=== PATIENT | male | born 1930 | race Caucasian/White ===

== ENCOUNTER → 2016-11-29 | Outpatient (CLI) | payer BC ==
[~2016-11-29] MED LIST: ALLO100T PO; CLC100X PO; CLON0.5T3 PO; DIPH-437 PO; DIVA125T18 PO; DOXY1TAB6 PO; FURO20TA PO; INDO50CA97 PO; LATA0.009 OPR; LEVO100T PO; LPR25 PO; LSN20 PO; MRLP17X PO; MULT-808 PO; POTA-335 PO; RIVA1.5T PO; SENN-63 PO; TYLOTC500 PO
[2016-11-29 09:44] LABS: BLOOD UREA NITROGEN 23 mg/dl (7-18); BUN/CREATININE RATIO 20.6 (10-20); CALCIUM 8.6 mg/dl (8.5-10.1); CARBON DIOXIDE 29 mmol/L (21-32); CHLORIDE 110 mmol/L (98-107); GLUCOSE 246 mg/dl (70-99); POTASSIUM 4.3 mmol/L (3.5-5.1); SODIUM 142 mmol/L (136-145)
--- NOTE | 2017-01-02 06:05 | CODING QUERY NO DIAGNOSIS ---
TREATMENT RENDERED WITHOUT A DIAGNOSIS To promote full compliance with coding requirements relating to patient care, physician participation is requested in all cases of airborne electronics analyst uncertainty. Please assist us with providing a diagnosis/symptom for the test(s) below: A diagnosis/symptom was not documented on your Order. A valid diagnosis/symptom is required to bill all insurances. Please remember that we are unable to code a diagnosis of rule out, probable, possible, questionable, or suspected. Tests that require a diagnosis: *PARTIAL RENAL PROFILE DIAGNOSIS: Provider Signature: Date: Thank you Darya Day [facility] Information Management Once completed, please kindly fax back to [phone] For questions please call [phone]
== END | disposition home or self-care (01) ==
LOC: C.LABOUTLO 08:56
PROVIDERS: ATTEND Family Medicine
DX: Z01.89 Encounter for other specified special examinations (principal)

== ENCOUNTER → 2017-02-07 | Outpatient (CLI) | payer BC ==
[2017-02-07 08:24] LABS: BLOOD UREA NITROGEN 21 mg/dl (7-18); BUN/CREATININE RATIO 18.9 (10-20); CARBON DIOXIDE 26 mmol/L (21-32); CHLORIDE 107 mmol/L (98-107); GLUCOSE 152 mg/dl (70-99); POTASSIUM 3.9 mmol/L (3.5-5.1); SODIUM 140 mmol/L (136-145)
== END | disposition home or self-care (01) ==
LOC: C.LABOUTLO 07:55
PROVIDERS: ATTEND Family Medicine
DX: Z01.89 Encounter for other specified special examinations (principal)

== ENCOUNTER → 2017-04-16 | Outpatient (CLI) | payer BC ==
[2017-04-16 08:32] LABS: HEMATOCRIT 44.7 % (42-52); MEAN CORPUSCULAR HEMOGLOBIN 29.9 pg (25-34); MEAN CORPUSCULAR HGB CONC 33.6 g/dl (32-36); MEAN PLATELET VOLUME 10.8 fL (7.4-10.4); PLATELET COUNT 204 K/uL (130-400); RED BLOOD COUNT 5.02 M/uL (4.7-6.1); WHITE BLOOD COUNT 5.04 K/uL (4.8-10.8)
[2017-04-16 08:41] LABS: BLOOD UREA NITROGEN 31 mg/dl (7-18); BUN/CREATININE RATIO 25.2 (10-20); CALCIUM 8.8 mg/dl (8.5-10.1); CARBON DIOXIDE 25 mmol/L (21-32); CHLORIDE 105 mmol/L (98-107); CREATININE 1.22 mg/dl (0.60-1.40); GLUCOSE 130 mg/dl (70-99); POTASSIUM 4.4 mmol/L (3.5-5.1); SODIUM 139 mmol/L (136-145); URIC ACID 7.3 mg/dl (2.6-7.2)
== END ==
LOC: C.LABOUTLO 07:54
PROVIDERS: ATTEND Family Medicine
DX: M10.00 Idiopathic gout, unspecified site (principal)

== ENCOUNTER → 2017-07-03 | Outpatient (CLI) | payer BC ==
[~2017-07-03] MED LIST changes: +ALL100 PO; +CZR25 PO; +DIVA250T4 PO; +FLUT0.15 NAE; +FURO-85 PO; +GLC/500 PO; +INDO-22 PO; +INSDGI SC; +LEVO112T4 PO; +METO25TA56 PO; +MULT-506 PO; +POTA20TA16 PO; +VBRT100 PO; +XRL20 PO
[2017-07-03 11:02] LABS: BASO % 0.6 %; BASO ABS # 0.03 K/uL (0-0.2); EOS % 3.9 %; EOS ABS # 0.21 K/uL (0-0.5); HEMOGLOBIN 15.6 g/dL (14.0-18.0); IG# 0.01 K/uL (0.00-0.02); LYMPH % 22.7 %; LYMPH ABS # 1.22 K/uL (1.2-3.4); MEAN CELL VOLUME 90.6 fL (80-100); MEAN CORPUSCULAR HEMOGLOBIN 30.1 pg (25-34); MEAN CORPUSCULAR HGB CONC 33.2 g/dl (32-36); MONO % 7.1 %; MONO ABS # 0.38 K/uL (0.11-0.59); NEUT % 65.5 %; NEUT ABS # 3.53 K/uL (1.4-6.5); PLATELET COUNT 196 K/uL (130-400); RED CELL DISTRIBUTION WIDTH CV 14.3 % (11.5-14.5); WHITE BLOOD COUNT 5.38 K/uL (4.8-10.8)
[2017-07-03 11:14] LABS: BLOOD UREA NITROGEN 21 mg/dl (7-18); CALCIUM 8.9 mg/dl (8.5-10.1); CARBON DIOXIDE 25 mmol/L (21-32); CREATININE 1.14 mg/dl (0.60-1.40); GLUCOSE 207 mg/dl (70-99); POTASSIUM 3.8 mmol/L (3.5-5.1); SODIUM 139 mmol/L (136-145)
== END | disposition home or self-care (01) ==
LOC: C.LABOUTLO 10:31
PROVIDERS: ATTEND Family Medicine
DX: E11.9 Type 2 diabetes mellitus without complications (principal); I10 Essential (primary) hypertension; Z86.73 Personal history of transient ischemic attack (TIA), and cerebral infarction without residual deficits

== ENCOUNTER 2017-07-08 13:12 | Emergency (ER) | payer BC ==
[~2017-07-08] VITALS: Ht 180.3 cm; Wt 115.8 kg
[~2017-07-08 13:12] MED LIST changes: -ALL100 PO; -CZR25 PO; -DIVA250T4 PO; -FLUT0.15 NAE; -FURO-85 PO; -GLC/500 PO; -INDO-22 PO; -INSDGI SC; -LEVO112T4 PO; -METO25TA56 PO; -MULT-506 PO; -POTA20TA16 PO; -VBRT100 PO; -XRL20 PO
[2017-07-08 13:25] VITALS: TEMP 36.4; Ht 180.3 cm; Wt 115.8 kg
[2017-07-08] MEDS ORDERED: SODIUM CHLORIDE 0.9% 1000ML 1,000 ML IV STA (13:34)
--- NOTE | 2017-07-08 13:38 | EMERGENCY ROOM VISIT NOTE ---
History Report prepared by Andrea: Edmund Reynolds Under the Supervision of: Dr. Rohit Flores M.D. First contact with patient: 13:26 Stated Complaint: WEAKNESS History of Present Illness The patient is an 87 year old male who presents to the Emergency Room with complaints of mild generalized fait/weakness since last night. The patient notes that he has been doing well aside from this weakness, he denies any abdominal pain. He does have a history of diabetes and his blood sugar was 250 last night at [facility]. Today the blood sugar was 120-130. Source of History: patient Onset: Last night Position: other (Generalized) Symptom Intensity: mild Quality: other (Weakness/Faintness) Associated Symptoms: No abdominal pain Review of Systems See HPI for pertinent positives & negatives. A total of 10 systems reviewed and were otherwise negative. Past Medical & Surgical Medical Problems: (1) Atrial Fibrillation (2) Diab Rosaura Wo Compl, Type Ii Or Unspec Type, Not Uncntrld (3) Gout Nos (4) Hypertrophy (Benign) Of Prostate W/O Urinary Obst & Oth Luts Family History Cancer Diabetes mellitus Hypertension Social History Smoking Status: Former Smoker Alcohol Use: occasionally Marital Status: single Housing Status: alf Occupation Status: retired Current/Historical Medications Scheduled Allopurinol (Allopurinol), 100 MG PO DAILY Divalproex Sodium (Depakote Delay Rel), 250 MG PO DAILY Doxycycline Hyclate (Doxycycline Hyclate), 100 MG PO Q12 Fluticasone Propionate (Nasal) (Flonase Allergy Relief), 2 SPRAYS MITCH HS Furosemide (Lasix), 20 MG PO BID Insulin Glargine (Lantus), 10 UNITS SC HS Levothyroxine Sodium (Levothyroxine Sodium), 112 MCG PO DAILY Losartan Potassium (Losartan Potassium), 25 MG PO DAILY Metformin Hcl (Glucophage), 1,000 MG PO BID Metoprolol Tartrate (Lopressor) (Lopressor), 12.5 MG PO BID Multivitamin (Multivitamin), 1 TAB PO DAILY Potassium Ext Rel (Klor-Con), 20 MEQ PO DAILY Rivaroxaban (Xarelto), 20 MG PO DAILY Scheduled PRN Indomethacin (Indocin), 25 MG PO TID PRN for GOUT FLARE Allergies Coded Allergies: No Known Allergies (Verified , 07/08/17) Physical Exam Vital Signs Date Time Temp Pulse Resp B/P (MAP) Pulse Ox O2 Delivery O2 Flow Rate FiO2 07/08/17 15:46 84 18 150/83 96 07/08/17 14:52 67 16 132/81 99 Room Air 88 142/101 88 137/85 07/08/17 14:15 72 16 147/88 97 Room Air 07/08/17 13:56 82 07/08/17 13:40 98 Room Air 07/08/17 13:40 98 Room Air 07/08/17 13:25 36.4 76 16 139/87 100 Room Air Physical Exam GENERAL: Awake, alert, well-appearing, in no acute distress HENT: Normocephalic, atraumatic. Oropharynx unremarkable. EYES: Normal conjunctiva. Sclera non-icteric. NECK: Supple. No nuchal rigidity. FROM. No JVD. RESPIRATORY: Clear to auscultation. CARDIAC: Regular rate, normal rhythm. Extremities warm and well perfused. Pulses equal. ABDOMEN: Soft, non-distended. No tenderness to palpation. No rebound or guarding. No masses. RECTAL: Deferred. MUSCULOSKELETAL: Chest examination reveals no tenderness. The back is symmetrical on inspection without obvious abnormality. There is no CVA tenderness to palpation. No joint edema. LOWER EXTREMITIES: Calves are equal size bilaterally and non-tender. No edema. No discoloration. NEURO: Normal sensorium. No sensory or motor deficits noted. SKIN: No rash or jaundice noted. Medical Decision & Procedures ER Provider Diagnostic Interpretation: Radiology results as stated below per my review and radiologist interpretation: CHEST ONE VIEW PORTABLE HISTORY: 87 years-old Male Pt c/O SOB acute shortness of breath with weakness COMPARISON: Chest radiograph 01/04/2016 TECHNIQUE: Portable AP view of the chest FINDINGS: Cardiac silhouette is again enlarged, unchanged. Atherosclerosis of the aorta. Left subclavian pacer appears unchanged. There is no pneumothorax or pleural effusion. Mild right hemidiaphragmatic elevation with hazy subsegmental left basilar opacities suggesting atelectasis. Bones of the chest appear grossly intact. IMPRESSION: Cardiomegaly without acute process. The above report was generated using voice recognition software. It may contain grammatical, syntax or spelling errors. Electronically signed by: Keith Gómez M.D. 07/08/2017 2:46 PM Dictated Date/Time: 07/08/2017 2:45 PM Laboratory Results 07/08/17 13:52 Red Blood Count 5.25, Mean Corpuscular Volume 89.9, Mean Corpuscular Hemoglobin 30.3, Mean Corpuscular Hemoglobin Concent 33.7, Mean Platelet Volume 10.3, Neutrophils (%) (Auto) 65.1, Lymphocytes (%) (Auto) 21.2, Monocytes (%) (Auto) 9.6, Eosinophils (%) (Auto) 3.3, Basophils (%) (Auto) 0.4, Neutrophils # (Auto) 3.54, Lymphocytes # (Auto) 1.15, Monocytes # (Auto) 0.52, Eosinophils # (Auto) 0.18, Basophils # (Auto) 0.02 07/08/17 13:52 Test 07/08/17 13:15 07/08/17 13:52 Urine Color YELLOW Urine Appearance CLEAR (CLEAR) Urine pH 5.0 (4.5-7.5) Urine Specific [place] <= 1.005 (1.000-1.030) Urine Protein NEG (NEG) Urine Glucose (UA) NEG (NEG) Urine Ketones NEG (NEG) Urine Occult Blood NEG (NEG) Urine Nitrite NEG (NEG) Urine Bilirubin NEG (NEG) Urine Urobilinogen NEG (NEG) Urine Leukocyte Esterase NEG (NEG) White Blood Count 5.43 K/uL (4.8-10.8) Red Blood Count 5.25 M/uL (4.7-6.1) Hemoglobin 15.9 g/dL (14.0-18.0) Hematocrit 47.2 % (42-52) Mean Corpuscular Volume 89.9 fL (80-100) Mean Corpuscular Hemoglobin 30.3 pg (25-34) Mean Corpuscular Hemoglobin Concent 33.7 g/dl (32-36) Platelet Count 207 K/uL (130-400) Mean Platelet Volume 10.3 fL (7.4-10.4) Neutrophils (%) (Auto) 65.1 % Lymphocytes (%) (Auto) 21.2 % Monocytes (%) (Auto) 9.6 % Eosinophils (%) (Auto) 3.3 % Basophils (%) (Auto) 0.4 % Neutrophils # (Auto) 3.54 K/uL (1.4-6.5) Lymphocytes # (Auto) 1.15 K/uL (1.2-3.4) Monocytes # (Auto) 0.52 K/uL (0.11-0.59) Eosinophils # (Auto) 0.18 K/uL (0-0.5) Basophils # (Auto) 0.02 K/uL (0-0.2) RDW Standard Deviation 46.4 fL (36.4-46.3) RDW Coefficient of Variation 14.2 % (11.5-14.5) Immature Granulocyte % (Auto) 0.4 % Immature Granulocyte # (Auto) 0.02 K/uL (0.00-0.02) Prothrombin Time 12.7 SECONDS (9.0-12.0) Prothromb Time International Ratio 1.2 (0.9-1.1) Anion Gap 7.0 mmol/L (3-11) Est Creatinine Clear Calc Drug Dose 52.3 ml/min Estimated GFR () 59.4 Estimated GFR (Non- 51.2 BUN/Creatinine Ratio 19.1 (10-20) Calcium Level 9.5 mg/dl (8.5-10.1) Total Bilirubin 0.4 mg/dl (0.2-1) Direct Bilirubin 0.1 mg/dl (0-0.2) Aspartate Amino Transf (AST/SGOT) 24 U/L (15-37) Alanine Aminotransferase (ALT/SGPT) 33 U/L (12-78) Alkaline Phosphatase 77 U/L (45-117) Total Creatine Kinase 71 U/L (39-308) Creatine Kinase MB 3.3 ng/ml (0.5-3.6) Creatine Kinase MB Ratio 4.6 (0-3.0) Troponin I < 0.015 ng/ml (0-0.045) Total Protein 8.1 gm/dl (6.4-8.2) Albumin 3.7 gm/dl (3.4-5.0) Thyroid Stimulating Hormone (TSH) 2.260 uIu/ml (0.300-4.500) Labs reviewed by ED physician. Medications Administered Medications (Trade) Dose Ordered Sig/Edgar Route Start Time Stop Time Status Last Admin Dose Admin Sodium Chloride 1,000 ml @ 999 mls/hr Q1H1M STAT IV 07/08/17 13:34 07/08/17 14:34 DC 07/08/17 14:19 999 MLS/HR ECG Per My Interpretation Indication: weakness Rate (beats per minute): 74 Rhythm: atrial flutter Findings: ST depression (Lateral), prolonged QT Comparison ECG Date: 01/04/2016 Change: PVCs are no longer present. Otherwise unchanged. ED Course 1331: Past medical records reviewed. The patient was evaluated in room C1A. A complete history and physical examination was performed. 1334: Ordered Sodium Chloride 1000 mL @ 999 mL/hr IV. 1536: Upon reexamination the patient is resting in bed. I discussed results and treatment plan with the patient. Him verbalizes agreement and understanding. The patient is ready for discharge. Medical Decision Differential diagnosis: Etiologies such as metabolic, infection, hypo/hyperglycemia, electrolyte abnormalities, cardiac sources, intracerebral event, toxicologic, neurologic, as well as others were entertained. This is an 87-year-old male who presents emergency department complaining of generalized weakness. Patient has vague symptoms and I will note has normal EKG as well as normal CK-MB and troponin functions. He does not have an elevation in his white blood count cell count has normal red blood cell count. After talking with the patient some more it appears that he has been having trouble sleeping at night. I believe this may be continuing to his symptoms and I recommended follow-up with sleep study lab along with his primary care physician. Both patient and family were in agreement with the treatment plan. Medication Reconcilliation Current Medication List: was personally reviewed by me Blood Pressure Screening Patient's blood pressure: Elevated blood pressure Impression Primary Impression: Weakness Scribe Attestation The scribe's documentation has been prepared under my direction and personally reviewed by me in its entirety. I confirm that the note above accurately reflects all work, treatment, procedures, and medical decision making performed by me. Departure Information Dispostion Home / Self-Care Referrals [place] (PCP) Forms HOME CARE DOCUMENTATION FORM, IMPORTANT VISIT INFORMATION Patient Instructions My [facility] Additional Instructions Increase fluids next 48 hours Follow up with PCP for possible sleep study You have been examined and treated today on an emergency basis only. This is not a substitute for, or an effort to provide, complete comprehensive medical care. It is impossible to recognize and treat all injuries or illnesses in a single emergency department visit. It is therefore important that you follow up closely with your PCP. Call as soon as possible for an appointment. Thank you for your time and consideration. I look forward to speaking with you again soon. Please don't hesitate to call us if you have any questions.
[2017-07-08 13:40] VITALS: O2SAT 98
[2017-07-08 14:19] LABS: BASO % 0.4 %; BASO ABS # 0.02 K/uL (0-0.2); EOS % 3.3 %; EOS ABS # 0.18 K/uL (0-0.5); HEMATOCRIT 47.2 % (42-52); HEMOGLOBIN 15.9 g/dL (14.0-18.0); IG# 0.02 K/uL (0.00-0.02); LYMPH % 21.2 %; LYMPH ABS # 1.15 K/uL (1.2-3.4); MEAN CELL VOLUME 89.9 fL (80-100); MEAN CORPUSCULAR HEMOGLOBIN 30.3 pg (25-34); MEAN CORPUSCULAR HGB CONC 33.7 g/dl (32-36); MEAN PLATELET VOLUME 10.3 fL (7.4-10.4); MONO % 9.6 %; MONO ABS # 0.52 K/uL (0.11-0.59); NEUT % 65.1 %; NEUT ABS # 3.54 K/uL (1.4-6.5); PLATELET COUNT 207 K/uL (130-400); RED CELL DISTRIBUTION WIDTH CV 14.2 % (11.5-14.5); RED CELL DISTRIBUTION WIDTH SD 46.4 fL (36.4-46.3); WHITE BLOOD COUNT 5.43 K/uL (4.8-10.8)
[2017-07-08 14:20] LABS: INR 1.2 (0.9-1.1)
[2017-07-08 14:29] LABS: ALBUMIN 3.7 gm/dl (3.4-5.0); ALT/SGPT 33 U/L (12-78); BLOOD UREA NITROGEN 24 mg/dl (7-18); CALCIUM 9.5 mg/dl (8.5-10.1); CARBON DIOXIDE 28 mmol/L (21-32); CREATININE 1.24 mg/dl (0.60-1.40); GLUCOSE 92 mg/dl (70-99); POTASSIUM 4.7 mmol/L (3.5-5.1); SODIUM 137 mmol/L (136-145)
[2017-07-08] MEDS ORDERED: METO25TA56 PO (14:32)
[2017-07-08] MEDS ORDERED: INDO-22 PO (14:32)
[2017-07-08] MEDS ORDERED: VBRT100 PO (14:32)
[2017-07-08] MEDS ORDERED: FURO-85 PO (14:32)
[2017-07-08] MEDS ORDERED: GLC/500 PO (14:32)
[2017-07-08] MEDS ORDERED: ALL100 PO (14:32)
[2017-07-08] MEDS ORDERED: DIVA250T4 PO (14:32)
[2017-07-08] MEDS ORDERED: INSDGI SC (14:32)
[2017-07-08] MEDS ORDERED: FLUT0.15 NAE (14:32)
[2017-07-08] MEDS ORDERED: XRL20 PO (14:32)
[2017-07-08] MEDS ORDERED: CZR25 PO (14:32)
[2017-07-08] MEDS ORDERED: MULT-506 PO (14:32)
[2017-07-08] MEDS ORDERED: POTA20TA16 PO (14:32)
[2017-07-08] MEDS ORDERED: LEVO112T4 PO (14:32)
[2017-07-08 14:40] LABS: ALKALINE PHOSPHATASE 77 U/L (45-117); AST/SGOT 24 U/L (15-37); CKMB 3.3 ng/ml (0.5-3.6); TOTAL PROTEIN 8.1 gm/dl (6.4-8.2)
--- NOTE | 2017-07-08 14:47 | DIAGNOSTIC IMAGING REPORT ---
CHEST ONE VIEW PORTABLE HISTORY: 87 years-old Male Pt c/O SOB acute shortness of breath with weakness COMPARISON: Chest radiograph 01/04/2016 TECHNIQUE: Portable AP view of the chest FINDINGS: Cardiac silhouette is again enlarged, unchanged. Atherosclerosis of the aorta. Left subclavian pacer appears unchanged. There is no pneumothorax or pleural effusion. Mild right hemidiaphragmatic elevation with hazy subsegmental left basilar opacities suggesting atelectasis. Bones of the chest appear grossly intact. IMPRESSION: Cardiomegaly without acute process. The above report was generated using voice recognition software. It may contain grammatical, syntax or spelling errors. Electronically signed by: Keith Gómez M.D. 07/08/2017 2:46 PM Dictated Date/Time: 07/08/2017 2:45 PM
[2017-07-08 15:46] VITALS: BP 150/83; PULSE 84; O2SAT 96
== END 2017-07-08 15:31 | disposition home or self-care (01) ==
LOC: EDBD 13:12 → C.EDC 13:13
DX: R53.1 Weakness (principal); E11.9 Type 2 diabetes mellitus without complications; I48.91 Unspecified atrial fibrillation; N40.0 Benign prostatic hyperplasia without lower urinary tract symptoms; Z87.891 Personal history of nicotine dependence; Z79.899 Other long term (current) drug therapy; I51.7 Cardiomegaly

== ENCOUNTER → 2017-08-01 | Outpatient (CLI) | payer BC ==
[~2017-08-01] MED LIST changes: +ALL100 PO; -ALLO100T PO; -CLC100X PO; -CLON0.5T3 PO; +CZR25 PO; -DIPH-437 PO; -DIVA125T18 PO; +DIVA250T4 PO; -DOXY1TAB6 PO; +FLUT0.15 NAE; +FURO-85 PO; -FURO20TA PO; +GLC/500 PO; +INDO-22 PO; -INDO50CA97 PO; +INSDGI SC; -LATA0.009 OPR; -LEVO100T PO; +LEVO112T4 PO; -LPR25 PO; -LSN20 PO; +METO25TA56 PO; -MRLP17X PO; +MULT-506 PO; -MULT-808 PO; -POTA-335 PO; +POTA-639 PO; -RIVA1.5T PO; -SENN-63 PO; -TYLOTC500 PO; +VBRT100 PO; +XRL20 PO
[2017-08-01 10:24] LABS: BASO % 0.4 %; BASO ABS # 0.02 K/uL (0-0.2); EOS % 5.7 %; HEMATOCRIT 45.3 % (42-52); HEMOGLOBIN 15.3 g/dL (14.0-18.0); IG# 0.03 K/uL (0.00-0.02); LYMPH % 23.7 %; LYMPH ABS # 1.24 K/uL (1.2-3.4); MEAN CELL VOLUME 89.5 fL (80-100); MEAN CORPUSCULAR HEMOGLOBIN 30.2 pg (25-34); MEAN CORPUSCULAR HGB CONC 33.8 g/dl (32-36); MEAN PLATELET VOLUME 10.6 fL (7.4-10.4); MONO % 9.7 %; MONO ABS # 0.51 K/uL (0.11-0.59); NEUT % 59.9 %; NEUT ABS # 3.14 K/uL (1.4-6.5); PLATELET COUNT 207 K/uL (130-400); RED CELL DISTRIBUTION WIDTH CV 13.9 % (11.5-14.5); RED CELL DISTRIBUTION WIDTH SD 45.1 fL (36.4-46.3); WHITE BLOOD COUNT 5.24 K/uL (4.8-10.8)
[2017-08-01 10:38] LABS: BLOOD UREA NITROGEN 22 mg/dl (7-18); CARBON DIOXIDE 26 mmol/L (21-32); CREATININE 1.28 mg/dl (0.60-1.40); GLUCOSE 208 mg/dl (70-99); POTASSIUM 3.9 mmol/L (3.5-5.1); SODIUM 138 mmol/L (136-145)
--- NOTE | 2017-08-23 12:16 | CODING QUERY NO DIAGNOSIS ---
Valid Physician Order Needed A valid physician order must be submitted in order to properly bill for the service(s) provided, including date of service(s), valid diagnosis, and physician signature. If these tests are done on a recurring basis the original physican order must be submitted in order to code and bill for the service(s) provided. Please fax us the original, signed physician order so that we may expedite billing to [phone] DOS 08/01/17 * CHEMISTRY + LIVER PROFILE * C- REACTIVE PROTEIN * MAGNESIUM * PREALBUMIN * PHOSPHORUS * CBC W/ AUTO DIFF * PT/INR * CYCLOSPORINE * GAMMA GLUTAMYL TRANSPEPTIDASE * ERYTHROCYTE SEDIMENTATION RATE Thank you [place] [employer]
== END | disposition home or self-care (01) ==
LOC: C.LABOUTLO 10:06
PROVIDERS: ATTEND Family Medicine
DX: I10 Essential (primary) hypertension (principal)

== ENCOUNTER → 2017-10-17 | Outpatient (CLI) | payer BC ==
[~2017-10-17] MED LIST changes: +ACET-1311 PO; -ALL100 PO; +ALLO100T PO; +CEFU1TAB35 PO; -DIVA250T4 PO; +DIVA250T93 PO; +DOCU100C22 PO; -FURO-85 PO; +GLIP5TAB3 PO; +GUAI1TAB7 PO; +LSX40 PO; +SENN-61 PO; +XRL15 PO; -XRL20 PO; +ZOLP5TAB6 PO
== END | disposition home or self-care (01) ==
LOC: C.LABSPEC 14:51
PROVIDERS: ATTEND Family Medicine
DX: R35.0 Frequency of micturition (principal)